=== PATIENT | female | born 1945 | race Caucasian/White ===

== ENCOUNTER 2016-12-02 14:09 | Day surgery (SDC) | payer OTHER ==
[~2016-12-02 14:09] MED LIST: AMLO5TAB2 PO; ASPI81TA81 PO; ATOR40TA16 PO; BACT800T5 PO; CAL-MAG-ZINC PO; CENTTAB8 PO; CHOL5000 PO; COEN100T PO; ENAL5TAB PO; METO25TA6 PO; NARD15TA PO; TEMA15CA PO
[2016-12-02 14:51] VITALS: BP 114/75; PULSE 64; RESP 20; TEMP 97.7; O2SAT 99
--- NOTE | 2016-12-02 15:37 | RADRPT ---
EXAM DATE/TIME: 12/02/2016 00:00 [facility] COMPARISON : No previous studies available for comparison. INDICATIONS : CONSULT FOR POSSIBLE CEREBRAL COILING OBJECTIVE: Temperature: 97.7 Heart Rate: 64 Blood Pressure: 114/75 Respiratory: 20 Oximetry: 99 PNEUMONIA VACCINE: YES HISTORY OF PRESENT ILLNESS: ? PAST MEDICAL HISTORY : 1. Myocardial infarction. 2. Hypertension. 3. Hypercholesterolemia. 4. ASCENDING AORTIC ANEURSYM 5. HEADACHES PAST SURGICAL HISTORY : 1. RIGHT HIP REPLACEMENT 2. HYSTERECTOMY 3. LEFT HIP REPAIR 4. LEFT ELBOW SX 5. LUMPECTOMY SOCIAL HISTORY : No alcohol use. Tobacco;former. ALLERGIES: 1. CODEINE 2. DEMEROL 3. TORADOL 4. SSRIS MEDICATIONS: 1. Lopressor (Metoprolol) 25 mg b.i.d. 2. ATORVASTATIN 40 mg q.d. 3. ENALAPRIL 5 mg q.d. 4. RESTORIL 15 mg q.d. 5. AMLODIPINE 5 mg q.d. 6. ASPIRIN 81 mg q.d. 7. CA/MG/ZINC q.d. 8. MVI mg q.d. 9. VITAMIN D 5000 units q.d. 10. COQ10 100 mg q.d. PHYSICAL EXAMINATION: Patient is oriented x3. Patient is intact. Patient ambulates without difficulty. There are no sensory deficits. IMAGING STUDIES: MRI performed on 09/15/2016 demonstrates the presence of 3 cerebral aneurysms. There are 2 in the righ t measuring 2 and 6 mm and one on the left measuring 6-7 mm. The left internal carotid or aneurysm or iginates adjacent to the ophthalmic artery and demonstrates a narrow neck amenable to endovascular tr eatment. The neck of the larger right-sided aneurysm is not well-visualized. ASSESSMENT: Bilateral internal carotid artery aneurysms as described. PLAN: Vascular mapping and endovascular treatment of the left internal carotid artery has been recommended to the patient. Patient will be scheduled when she decides to proceed with the procedure. TIME SPENT: 30 minutes. Heath Malagon MD on December 02, 2016 at 15:28 Board Certified Radiologist. This report was verified electronically.
== END 2016-12-02 15:34 | disposition home or self-care (01) ==
LOC: HROP 14:09 → HRIP 14:10 → HROP 15:34
PROVIDERS: ATTEND Nurse Practitioner Acute Care
DX: I67.1 Cerebral aneurysm, nonruptured (principal)
CPT/HCPCS: 99213; G0463

== ENCOUNTER 2016-12-09 08:27 | Inpatient (IN) | payer OTHER, MEDICARE ==
[~2016-12-09] VITALS: Ht 160 cm; Wt 75.2 kg
[2016-12-09] MEDS ORDERED: PROPOFOL 200 MG/20 ML AMP IV ONE (08:32)
[2016-12-09] MEDS ORDERED: ONDANSETRON HCL 4 MG/2 ML VIAL IV PUSH ONE (08:33)
[2016-12-09] MEDS ORDERED: LACTATED RINGER'S 1,000 ML BAG IV ONE (08:33)
[2016-12-09 09:09] VITALS: BP 133/89; PULSE 65; RESP 20; TEMP 98.1; O2SAT 95
[2016-12-09 09:45] LABS: AUTOMATED NEUTROPHIL # 4.9 TH/MM3 (1.8-7.7); BASOPHIL % 0.6 % (0.0-2.0); EOSINOPHIL # 0.2 TH/MM3 (0-0.4); EOSINOPHIL % 2.5 % (0.0-4.0); HEMATOCRIT 39.3 % (35.0-46.0); HEMO FLAGS DIFF FINAL; LYMPH % 22.1 % (9.0-44.0); LYMPHOCYTE # 1.7 TH/MM3 (1.0-4.8); MEAN CELL VOLUME 87.3 FL (80.0-100.0); MEAN CORPUSCULAR HEMOGLOBIN 29.9 PG (27.0-34.0); MEAN CORPUSCULAR HGB CONC 34.2 % (32.0-36.0); MONO % 8.6 % (0.0-8.0); NEUT % 66.2 % (16.0-70.0); PLATELET COUNT 204 TH/MM3 (150-450); RED BLOOD COUNT 4.51 MIL/MM3 (4.00-5.30); RED CELL DISTRIBUTION WIDTH 14.6 % (11.6-17.2); WHITE BLOOD COUNT 7.5 TH/MM3 (4.0-11.0)
[2016-12-09] MEDS ORDERED: CHLORHEXIDINE GLUCONATE 2 % 1 PACK (2 CLOTHS) TOPICAL PRN (09:45)
[2016-12-09] MEDS ORDERED: SODIUM CHLOR 0.9% 1000 ML INJ 1,000 ML IV ONE (09:45)
[2016-12-09] MEDS ORDERED: LACTATED RINGER'S 1000 ML IV PRN (09:45)
[2016-12-09] MEDS ORDERED: METOPROLOL TARTRATE 25 MG TAB PO PRN (09:45)
[2016-12-09] MEDS ORDERED: INSULIN HUMAN REGULAR 1,000 UNITS/10 ML VIAL SQ PRN (09:45)
[2016-12-09] MEDS ORDERED: POVIDONE IODINE 5% (ANTISEPSIS KIT) 4 APPLICATIONS EACH NARE PRN (09:45)
[2016-12-09] MEDS ORDERED: SODIUM CHLORID 0.9% 500 ML IV PRN (09:45)
[2016-12-09 09:54] LABS: APTT (PATIENT) 22.4 SEC (24.3-30.1); PROTHROMBIN TIME - PATIENT 10.7 SEC (9.8-11.6)
[2016-12-09 09:58] LABS: BICARBONATE 24.8 MEQ/L (21.0-32.0)
[2016-12-09] MEDS ORDERED: VERAPAMIL HCL 5 MG/2 ML VIAL ONE ×2 (11:03→14:11)
[2016-12-09] MEDS ORDERED: HEPARIN SODIUM - IV 10,000 UNITS/10 ML VIAL ONE (13:44)
[2016-12-09] MEDS ORDERED: PROTAMINE SULFATE 50 MG/5 ML VIAL ONE (14:08)
--- NOTE | 2016-12-09 14:54 | PD.RAD ---
Post Procedure Progress Note Pre Procedure Diagnosis: (1) Cerebral aneurysm, nonruptured Post Procedure Diagnosis: (1) Cerebral aneurysm, nonruptured Procedure Date: Dec 09, 2016 Supervising Radiologist: Heath Malagon Proceduralist/Assist: Radha Gillette, RT(R), Stephanie Marti, RT(R), Hans Ellington, RT(R), Sheila Brooke, RT(R) Anesthesia: General, Local Plan of Activity Patient to Unit: Critical Care Patient Condition: Good See PACS Report for procedural detail/treatment Vascular-Arterial Procedure Procedure 1 Procedure Site: Cerebral Procedure(s): Intracranial Aneurysm Repair Access Access Site(s): Right Femoral Artery Closure Site(s): Right vascular closure device Findings: Bilateral ICA intracranial aneurysms. Lt ICA aneurysm is saccular measuring 6-7 mm. Treament Area: Endovascular coiling of Lt ICA completed with procedural complication. Plan Neurologic observation in intensive care until am. Ok to discharge on 12/10 if neurologically intact. Follow up in [facility] on December 28. Heath Malagon MD Dec 09, 2016 14:54
[2016-12-09] MEDS ORDERED: IODIXANOL 320 MG/ML 50 ML VIAL (for RAD SPEC) I-ARTERIAL ONE (14:59)
[2016-12-09] MEDS ORDERED: DO NOT ADM ANY ANTICOAGULANT DRUGS PRN (15:30)
[2016-12-09] MEDS ORDERED: fentaNYL CITRATE 250 MCG/5 ML AMP ONE (15:36)
[2016-12-09 17:00] VITALS: BP 112/68; PULSE 54; RESP 17; TEMP 97.9; O2SAT 100
[2016-12-09 18:00] VITALS: PULSE 65
--- NOTE | 2016-12-09 19:31 | HHI.HP ---
HPI Service Critical Care Medicine Primary Care Physician Chelle Aguilar MD Admission Diagnosis Diagnosis: Chief Complaint: post-coil Travel History International Travel<30 Days: No Contact w/Intl Traveler <30 Da: No Traveled to Known Affected Are: No History of Present Illness This is a 71-year-old female with history of bilateral cerebral aneurysms who presents for elective cerebral aneurysm coiling. The procedure was unconjugated. Procedure included a left carotid aneurysm coiling. The right sided aneurysm was not coiled. The patient was taken to PACU in stable condition. I evaluated the patient in PACU. She was still somnolent arousing from anesthesia. She denied pain. Critical-care medicine is consulted to bite manage her post coiling care including observation a high-level care secondary to high risk of post procedural intracerebral hemorrhage. Review of Systems ROS Limitations: Clinical Condition, Altered Mental Status ROS Arousing from anesthesia. Past Family Social History Allergies: Coded Allergies: Codeine (Verified Allergy, Severe, UPSET STOMACH, 12/02/16) Demerol (Verified Allergy, Severe, ON NARDIL, 12/02/16) PT STATES THAT SHE CANNOT TAKE ANY NARCOTICS BECAUSE SHE IS ON NARDIL SSRI-Serotonin Reuptake Inhib (Verified Allergy, Severe, 12/02/16) Toradol (Verified Allergy, Mild, Confusion, 12/02/16) Past Medical History Hypertension Dyslipidemia Questionable prior myocardial infarction Coronary artery disease Headache/migraines Ascending aortic aneurysm GERD Gastric ulcers Bilateral internal carotid artery aneurysms Anxiety Past Surgical History Left elbow repair Right hip surgical procedure Left hip surgical procedure Lumpectomy 2 Hysterectomy Left heart catheterization Reported Medications Amlodipine Aspirin Atorvastatin CoQ10 Vitamin D Metoprolol Enalapril Temazepam Active Ordered Medications See MAR Family History Reviewed the chart and found to be noncontributory to the patient's acute illness Social History 1 pack per day smoker, quit 1 year ago. Physical Exam Vital Signs Vital Signs Date Time Temp Pulse Resp B/P Pulse Ox O2 Delivery O2 Flow Rate FiO2 12/09/16 18:00 65 12/09/16 17:00 97.9 54 17 112/68 100 12/09/16 16:15 58 16 105/70 99 Nasal Cannula 2 12/09/16 16:00 97.2 77 16 99 Nasal Cannula 2 105/61 12/09/16 15:45 96.0 53 16 107/69 99 Nasal Cannula 2 109/60 12/09/16 15:30 95.1 52 16 112/71 98 Nasal Cannula 2 113/62 12/09/16 15:15 58 16 107/73 97 Nasal Cannula 2 113/61 12/09/16 15:00 89 16 112/76 98 Nasal Cannula 2 113/61 12/09/16 14:48 62 16 119/73 98 Nasal Cannula 2 12/09/16 09:14 95 Room Air 12/09/16 09:09 98.1 65 20 133/89 95 Physical Exam GENERAL: Elderly female, lying in bed, just arousing from anesthesia HEENT:. Normocephalic Atraumatic. Pupils equal, round, reactive, conjugate. Mucous membranes are moist. NECK: Trachea is midline. There is no JVD. CHEST: Unlabored respirations. Equal chest rise. Clear to auscultation. CARDIOVASCULAR: Normal Rate, regular rhythm. No appreciable murmurs. ABDOMEN: Soft, nontender, nondistended. No guarding MUSCULOSKELETAL: Distal pulses 2+. Right radial arterial line site intact. Right groin sheath site intact. NEUROLOGICAL: RASS 0. Follows commands in all 4 extremity's. No focal deficits. Laboratory Laboratory Tests Test 12/09/16 09:20 White Blood Count 7.5 Red Blood Count 4.51 Hemoglobin 13.5 Hematocrit 39.3 Mean Corpuscular Volume 87.3 Mean Corpuscular Hemoglobin 29.9 Mean Corpuscular Hemoglobin 34.2 Concent Red Cell Distribution Width 14.6 Platelet Count 204 Mean Platelet Volume 8.7 Neutrophils (%) (Auto) 66.2 Lymphocytes (%) (Auto) 22.1 Monocytes (%) (Auto) 8.6 Eosinophils (%) (Auto) 2.5 Basophils (%) (Auto) 0.6 Neutrophils # (Auto) 4.9 Lymphocytes # (Auto) 1.7 Monocytes # (Auto) 0.6 Eosinophils # (Auto) 0.2 Basophils # (Auto) 0.0 CBC Comment DIFF FINAL Differential Comment Prothrombin Time 10.7 Prothromb Time International 1.0 Ratio Activated Partial 22.4 Thromboplast Time Sodium Level 142 Potassium Level 4.0 Chloride Level 107 Carbon Dioxide Level 24.8 Anion Gap 10 Blood Urea Nitrogen 29 Creatinine 1.09 Estimat Glomerular Filtration 49 Rate Random Glucose 103 Calcium Level 9.2 Result Diagram: 12/09/1691912/09/16919 Assessment and Plan Assessment and Plan Assessment: This is a 71-year-old female postop day 0 status post elective coiling of a left internal carotid artery aneurysm. She still has a right internal carotid aneurysm that is unable to coil at this time. She will be admitted to the ICU for close observation. Active Problems: Unsecured Right ICA aneurysm Secured coiled left ICA aneurysm POD 0 s/p left ICA aneurysm endovascular coiling Hypertension Hyperlipidemia Plan: -- nursing bedside swallow evaluation and advance to regular diet as tolerated -- frequent neuro checks -- vitals per ICU standard -- bedrest and flat per proceduralist request. no restrictions after this -- home antihypertensives -- goal SBP < 140. -- home ASA -- restart home statin -- will likely d/c home in the morning. Code Status Full Code Discussed Condition With Dr. Manas Campbell,Julius Benitez MD Dec 09, 2016 19:31
[2016-12-09 20:00] VITALS: BP_SYST 111; BP_SYST 114; BP_DIAS 59; BP_DIAS 70; PULSE 61; RESP 15; TEMP 98; O2SAT 100
[2016-12-09 22:00] VITALS: PULSE 56
[2016-12-10] VITALS: BP_SYST 101; BP_SYST 112; BP_DIAS 62; BP_DIAS 63; PULSE 68; RESP 17; TEMP 98.4; O2SAT 94
[2016-12-10 02:00] VITALS: PULSE 74
[2016-12-10 04:00] VITALS: BP_SYST 110; BP_SYST 121; BP_DIAS 64; BP_DIAS 70; PULSE 66; RESP 17; TEMP 98.5; O2SAT 92
[2016-12-10 04:35] LABS: MEAN CELL VOLUME 87.8 FL (80.0-100.0); MEAN CORPUSCULAR HEMOGLOBIN 29.5 PG (27.0-34.0); MEAN CORPUSCULAR HGB CONC 33.6 % (32.0-36.0); PLATELET COUNT 153 TH/MM3 (150-450); RED BLOOD COUNT 3.75 MIL/MM3 (4.00-5.30); RED CELL DISTRIBUTION WIDTH 14.1 % (11.6-17.2); REVIEW FLAG FINAL; WHITE BLOOD COUNT 6.6 TH/MM3 (4.0-11.0)
[2016-12-10 05:08] LABS: BICARBONATE 24.5 MEQ/L (21.0-32.0)
[2016-12-10 06:00] VITALS: PULSE 59
--- NOTE | 2016-12-10 07:49 | PD.RAD ---
Radiology Note S/P Lt ICA intra cranial aneurysm coiling. S: Pt awake and conversing. Denies any pain or altered sensations compared to pre-procedural status. O: Alert and oriented. Neuro checks have been unremarkable. Groin supple without hematoma. A: Doing well post coiling. P: Ok to discharge to self care. Follow up with Dr. Malagon in [facility] on December 28. Heath Malagon MD Dec 10, 2016 07:49
[2016-12-10 08:00] VITALS: BP 101/70; PULSE 73; RESP 15; TEMP 98.4; O2SAT 94
--- NOTE | 2016-12-10 08:16 | HHI.DS ---
Discharge Summary Admission Date Dec 09, 2016 at 16:59 Admitting Diagnosis Brief History This is a 71-year-old female with history of bilateral cerebral aneurysms who presents for elective cerebral aneurysm coiling. The procedure was unconjugated. Procedure included a left carotid aneurysm coiling. The right sided aneurysm was not coiled. The patient was taken to PACU in stable condition. I evaluated the patient in PACU. She was still somnolent arousing from anesthesia. She denied pain. Critical-care medicine is consulted to bite manage her post coiling care including observation a high-level care secondary to high risk of post procedural intracerebral hemorrhage. CBC/BMP: 12/10/16 0350 12/10/16 0350 Significant Findings Laboratory Tests Test 12/09/16 12/10/16 09:20 03:50 Monocytes (%) (Auto) 8.6 % (0.0-8.0) Activated Partial 22.4 SEC Thromboplast Time (24.3-30.1) Blood Urea Nitrogen 29 MG/DL (7-18) 19 MG/DL (7-18) Creatinine 1.09 MG/DL (0.50-1.00) Estimat Glomerular Filtration 49 ML/MIN (>89) 68 ML/MIN (>89) Rate Red Blood Count 3.75 MIL/MM3 (4.00-5.30) Hemoglobin 11.1 GM/DL (11.6-15.3) Hematocrit 33.0 % (35.0-46.0) Chloride Level 110 MEQ/L (98-107) Calcium Level 8.2 MG/DL (8.5-10.1) PE at Discharge gen: elderly female, sitting in bed, in NAD. heent: perrl. eomi. mucous membranes moist. neck: trachea midline. no jvd. chest: unlabored. equal chest rise. clear to auscultation cv: normal rate, regular rhythm. no appreciable murmurs abd: soft, nontender, nondistended. no guarding. extr: no peripheral edema. groin access site without hematoma. neuro: no focal deficits. RASS 0. GCS 15. follows commands. Hospital Course Patient tolerated elective coiling without event. she tolerated dinner last night without nausea. she is voiding on her own and ambulating on her own. on room air. discussed with dr. waggoner and safe to d/c home. plan will be non- operative observational management of the right ICA aneurysm. Pt Condition on Discharge: Good Discharge Disposition: Discharge Home Discharge Instructions DIET: Follow Instructions for: As Tolerated, No Restrictions Activities you can perform: Regular-No Restrictions Julius Cambpell MD Dec 10, 2016 08:16
[2016-12-10] MEDS ORDERED: ATORVASTATIN 40 MG TAB PO SCH (09:00)
[2016-12-10] MEDS ORDERED: ASPIRIN EC 81 MG TABEC PO SCH (09:00)
[2016-12-10] MEDS ORDERED: ENALAPRIL MALEATE 5 MG TAB PO SCH (09:00)
[2016-12-10] MEDS ORDERED: amLODIPine BESYLATE 5 MG TAB PO SCH (09:00)
--- NOTE | 2016-12-10 12:53 | RADRPT ---
EXAM DATE/TIME: 12/09/2016 00:00 [facility] COMPARISON: No previous studies available for comparison. INDICATIONS : Patient presents with cerebral aneurysm in need of angiogram with possible coiling . MEDICAL HISTORY : HTN NM Osteoporosis CAD SURGICAL HISTORY : Lumpectomy Hysterectomy Tubal ligation Total right hip Left elbow AAA repair ENCOUNTER: Initial ACUITY: 1 month PAIN SCORE: 0/10 LOCATION: N/A FLUORO TIME: 59.5 minutes IMAGE SERIES: 13 ACCESS SITE: Right Femoral artery CONTRAST: 120 cc Visipaque (iodixanol) DEVICE(S): 1.) Left internal carotid artery embolic coil(s) 6mm x 12cm 2.) Left internal carotid artery embolic coil(s) 5mm x 10cm 3.) Left int. carotid embolic coil(s) 4mm x 10cm 4.) Left int. carotid embolic coil(s) 3mm x 8cm 5.) Left internal carotid artery embolic coil(s) 3.5mm x 9cm 6.) Right common femoral artery Angio-Seal 6fr PROCEDURE : 1. Ultrasound-guided puncture of the access site. 2. Angiography of the access site prior to closure device. 3. Conscious sedation with continuous EKG and Oximetry monitoring. 4. Percutaneous closure of the access site. 5. Angiography of the right carotid/cerebral arteriogram 6. Angiography of the left carotid/cerebral arteriogram 7. Endovascular coiling of left intracranial ICA aneurysm. 8. Post coiling cerebral arteriogram. The risks, benefits and alternatives to the procedure were explained and verbal and written consent w as obtained. The site was prepped in sterile fashion. Full sterile technique was used, including ca p, mask, sterile gloves and gown and a large sterile sheet. Hand hygiene and 2% chlorhexidine and/or betadine/alcohol prep was utilized per protocol for cutaneous antisepsis. The skin and subcutaneous tissues were infiltrated with local anesthetic solution. With ultrasound and fluoroscopic guidance the selected artery was punctured and a vascular sheath was placed. Angiography of the common femoral artery was performed for evaluation prior to percutaneous closure device placement. Right carotid/cerebral arteriogram: A cerebral diagnostic catheter was advanced through the right femoral sheath into the distal right co mmon carotid artery. A carotid/cerebral arthrogram was performed. The extracranial carotid artery is unremarkable without significant stenosis. Cerebral arteriogram demonstrates complex aneurysmal margin of the cavernous segment of the internal carotid artery. There is generalized fusiform aneurysmal enlargement of the vessel with an additional saccular component in the mid cavernous segment. The saccular component projects medially and cephal ad. It demonstrates a wide mouth with a 1-1 dome to neck ratio. The generalized enlargement of the mu scle measures approximately 6 mm. The saccular component measures 6.5 mm. A prominent infundibulum versus a small posterior indicating artery aneurysm is noted. The anterior a nd middle cerebral vessels appear normal. Left carotid/cerebral arterial: Next, selective catheterization was performed of the left common carotid artery. A carotid/aortogram was performed. Mild plaque is identified in the left carotid bifurcation without significant stenosis . Intracranial evaluation demonstrates mild ectasia throughout the cavernous segment of the ICA. In add ition there is a saccular aneurysm which measure proximally 7 mm on MRA. The left middle and anterior cerebral vessels are unremarkable. Minimal blush of the cavernous sinus is seen in the early arteria l phase. Small meningeal feeding vessel is identified extending to the cavernous sinus. Endovascular coiling of left intracranial ICA aneurysm: The left intracranial artery was selectively catheterized and a endovascular sheath advanced to the p etrous segment of the internal carotid artery. Rotational angiography for mapping of the aneurysm was then performed. Under fluoroscopic observation a microcatheter was advanced over guidewire and positioned within the aneurysm. Using roadmap technique a framing coil followed by flair additional flow coils were placed in the aneurysm. No further cores could be replaced due to buckling of the microcatheter. Small resid ual neck was identified. Post coiling left cerebral arteriogram: AP and lateral views of the left cerebral vessels demonstrates normal appearing vessels without evide nce of filling defects, occlusions or mass effect. Hemostasis was obtained with the prescribed medicated closure device. Anesthesia was administered by the anesthesia department. Patient tolerated procedure well. There were no acute procedure comp occas ions. CONCLUSION: Bilateral carotid/cerebral arteriography demonstrates bilateral internal carotid megan ry aneurysms predominantly involving the cavernous segments as described. 7 mm saccular aneurysm off the distal left cavernous segment of the ICA adjacent to the ophthalmic ar pancho. Endovascular coiling of the left-sided 7 mm saccular aneurysm completed without procedural complicati on. Heath Malagon MD on December 10, 2016 at 12:33 Board Certified Radiologist. This report was verified electronically.
== END 2016-12-10 09:57 | disposition home or self-care (01) | DRG 27 ==
LOC: HROP 08:27 → EDSTATUS 08:30 → HRIP 08:35 → HROP 16:58 → N03B 16:59
PROVIDERS: ADMIT Neurological Surgery; ATTEND Neurological Surgery
PROC: 03LG3DZ Occlusion of Intracranial Artery with Intraluminal Device, Percutaneous Approach (ICD-10-PCS; principal; 2016-12-10)
PROC: B3151ZZ Fluoroscopy of Bilateral Common Carotid Arteries using Low Osmolar Contrast (ICD-10-PCS; 2016-12-10)
DX: I67.1 Cerebral aneurysm, nonruptured (principal); I10 Essential (primary) hypertension; E78.5 Hyperlipidemia, unspecified; I25.10 Atherosclerotic heart disease of native coronary artery without angina pectoris; G43.909 Migraine, unspecified, not intractable, without status migrainosus; K21.9 Gastro-esophageal reflux disease without esophagitis; Z87.11 Personal history of peptic ulcer disease; F41.9 Anxiety disorder, unspecified; Z87.891 Personal history of nicotine dependence; Z79.82 Long term (current) use of aspirin
CPT/HCPCS: 36223; 36224; 61624; 76937; 80048; 85025; 85027; 85610; 85730; C1751; C1760; C1769; C1887; C1894; G0269; J1644; J2405; J2720; J3010; J7030; J7120; Q9967

== ENCOUNTER 2016-12-28 13:47 | Day surgery (SDC) | payer OTHER ==
[~2016-12-28 13:47] MED LIST changes: -BACT800T5 PO; -NARD15TA PO
[2016-12-28 14:12] VITALS: BP 132/76; PULSE 58; RESP 20; TEMP 98.1; O2SAT 97
--- NOTE | 2016-12-28 15:48 | RADRPT ---
EXAM DATE/TIME: 12/28/2016 00:00 [facility] COMPARISON : INDICATIONS : F/U aneurysm coiling OBJECTIVE: Temperature: 98.1 Heart Rate: 58 Blood Pressure: 132/76 Respiratory: 20 Oximetry: 97 PNEUMONIA VACCINE: NO HISTORY OF PRESENT ILLNESS: 71-year-old female returns for followup visit following endovascular coiling of a paraophthalmic left internal carotid artery aneurysm performed on 12/09/2016. She is doing well post procedure without complaints of headaches, paresthesias, sensory deficits or w eakness. She denies double vision. PAST MEDICAL HISTORY : 1. Aneurysm, intracranial. 2. migraine 3. Myocardial infarction. 4. Aneurysm, abdominal. 5. Cardiovascular disease. 6. Hypercholesterolemia. 7. Hypertension. 8. Ulcers. PAST SURGICAL HISTORY : 1. aneurysm coiling 2. left elbow reconstruction 3. left hip repair SOCIAL HISTORY : Tobacco;former. Patient has a ALLERGIES: 1. codeine 2. demerol 3. toradol 4. SSRI-serotonin reuptake inhib MEDICATIONS: 1. amlodipine 5 mg q.d. 2. [id number] mg q.d. 3. atorvastatin 40 mg q.d. 4. vitamin D3 5,000 units q.d. 5. coenzyme Q10 100 mg q.d. 6. enalapril 5 mg q.d. 7. Lopressor (Metoprolol)25 mg q.d. 8. multi-vitamin 1 tab q.d. 9. temazepam 15 mg q.h.s. PHYSICAL EXAMINATION: Patient is alert and oriented. Pupils are equally reactive to light and accommodation. She ambulates without difficulty. There were no focal motor or sensory deficits. ASSESSMENT: Satisfactory postoperative course following endovascular coiling of a left ICA aneurysm. There are no acute or delayed complications PLAN: Followup MRA in [address] Pendleton in 6 months TIME SPENT: 20 minutes Heath Malagon MD on December 28, 2016 at 15:38 Board Certified Radiologist. This report was verified electronically.
== END 2016-12-28 14:56 | disposition home or self-care (01) ==
LOC: HROP 13:47 → HRIP 13:48 → HROP 14:56
PROVIDERS: ATTEND Radiology Diagnostic Radiology
DX: I67.1 Cerebral aneurysm, nonruptured (principal); I25.10 Atherosclerotic heart disease of native coronary artery without angina pectoris; I25.2 Old myocardial infarction; E78.00 Pure hypercholesterolemia, unspecified

== ENCOUNTER 2017-09-28 13:32 | Day surgery (SDC) | payer OTHER ==
[~2017-09-28 13:32] MED LIST changes: +METO1TAB42 PO; -METO25TA6 PO
[2017-09-28 14:01] VITALS: BP 97/67; PULSE 65; RESP 20; TEMP 98; O2SAT 96
== END 2017-09-28 15:00 | disposition home or self-care (01) ==
LOC: HRIP 13:32 → HROP 13:32
PROVIDERS: ATTEND Radiology Body Imaging
DX: I67.1 Cerebral aneurysm, nonruptured (principal)